=== PATIENT | female | born 1995 | race American Indian/Alaskan Native ===

== ENCOUNTER 2018-09-07 15:19 | Outpatient (CLI) | payer OTHER, MEDICAID ==
[2018-09-07] MEDS ORDERED: LACTATED RINGERS 500 ML IV ONE (15:38)
[2018-09-07 15:54] VITALS: BP 118/68
[2018-09-07 16:05] LABS: Bacteria,Urine 2+ /HPF (Negative); Bilirubin,Urine NEG (Negative); Blood,Urine NEG (Negative); Color,Urine Straw (Yellow); Protein,Urine <15 mg/dL mg/dL (Negative); Urobilinogen,Urine < 2.0 mg/dL (<2.0)
[2018-09-07] MEDS ORDERED: LACTATED RINGERS 1,000 ML ONE (18:48)
[2018-09-07] MEDS ORDERED: ceFAZolin 2 GM in NACL 0.9% 100 ML IV ONE (19:00)
== END 2018-09-07 20:04 | disposition home or self-care (01) ==
LOC: TRG 15:19
PROVIDERS: ATTEND Obstetrics & Gynecology
DX: O47.03 False labor before 37 completed weeks of gestation, third trimester (principal); O99.513 Diseases of the respiratory system complicating pregnancy, third trimester; J45.909 Unspecified asthma, uncomplicated; Z3A.35 35 weeks gestation of pregnancy
CPT/HCPCS: 81001; 96365; J0690; J7120

== ENCOUNTER 2018-10-04 14:44 | Outpatient (CLI) | payer OTHER, MEDICAID ==
[2018-10-04 15:32] VITALS: BP 127/72
== END 2018-10-04 16:15 | disposition home or self-care (01) ==
LOC: TRG 14:44
PROVIDERS: ATTEND Obstetrics & Gynecology
DX: O47.1 False labor at or after 37 completed weeks of gestation (principal); O99.513 Diseases of the respiratory system complicating pregnancy, third trimester; J45.909 Unspecified asthma, uncomplicated; Z3A.39 39 weeks gestation of pregnancy
CPT/HCPCS: 59025

== ENCOUNTER 2018-10-11 10:35 | Outpatient (CLI) | payer OTHER, MEDICAID ==
[2018-10-11 10:58] VITALS: BP 138/75
--- NOTE | 2018-10-11 13:24 | Ultrasound Report ---
ULTRASOUND OB LIMITED History: BERNARD Technique: Transabdominal ultrasound with Doppler interrogation. Gestation: Single Position: Cephalic Amniotic Fluid: Normal BERNARD = 7.4 cm Heart Rate: 120 BPM
--- NOTE | 2018-10-11 13:24 | Ultrasound Report ---
ULTRASOUND BIOPHYSICAL PROFILE: History: well being, postdates Technique: Transabdominal ultrasound with Doppler interrogation. 2 - breathing movements 2 - movements 2 - posture and tone 2 - Qualitative amniotic fluid volume 8 - TOTAL SCORE OF POSSIBLE 8 Heart Rate (bpm) 123
== END 2018-10-11 13:22 | disposition home or self-care (01) ==
LOC: TRG 10:35
PROVIDERS: ATTEND Obstetrics & Gynecology
DX: O47.1 False labor at or after 37 completed weeks of gestation (principal); O99.513 Diseases of the respiratory system complicating pregnancy, third trimester; J45.909 Unspecified asthma, uncomplicated; Z3A.40 40 weeks gestation of pregnancy
CPT/HCPCS: 59025; 76815; 76819

== ENCOUNTER 2018-10-12 00:03 | Outpatient (CLI) | payer OTHER, MEDICAID ==
[2018-10-12 00:26] VITALS: BP 126/85
[2018-10-12] MEDS ORDERED: VISTARIL PO PRN (01:18)
== END 2018-10-12 01:34 | disposition home or self-care (01) ==
LOC: TRG 00:03
PROVIDERS: ATTEND Obstetrics & Gynecology
DX: O47.1 False labor at or after 37 completed weeks of gestation (principal); Z3A.40 40 weeks gestation of pregnancy
CPT/HCPCS: Q0177

== ENCOUNTER 2018-10-12 09:15 | Inpatient (IN) | payer OTHER, MEDICAID ==
[2018-10-12] MEDS ORDERED: LACTATED RINGERS 1,000 ML ONE ×2 (11:27→12:44)
[2018-10-12] MEDS ORDERED: ZOFRAN IV PRN (12:14)
[2018-10-12] MEDS ORDERED: MINERAL OIL PO PRN (12:14)
[2018-10-12] MEDS ORDERED: BRETHINE SUB-Q PRN (12:14)
[2018-10-12] MEDS ORDERED: SUBLIMAZE IV PRN (12:14)
[2018-10-12] MEDS ORDERED: NARCAN 0.4 MG/1 ML IV PRN (12:14)
[2018-10-12] MEDS ORDERED: STADOL IV PRN (12:14)
[2018-10-12] MEDS ORDERED: BRETHINE IVP PRN (12:14)
[2018-10-12 12:31] LABS: Hematocrit 28.4 % (30.3-42.9); Hemoglobin 8.8 gm/dl (10.1-14.3); Mean Corpuscular HGB Conc 31 % (30-34); Mean Corpuscular Volume 76 fl (79-97); Platelet Count 356 K/mm3 (140-440); Red Blood Count 3.74 M/mm3 (3.65-5.03); Red Cell Distribution Width 19.2 % (13.2-15.2)
[2018-10-12] MEDS ORDERED: PITOCin/NS 20 UNIT/1000ML DRIP 20 UNITS/1,000 ML BAG IV SCH (13:00)
[2018-10-12] MEDS ORDERED: LACTATED RINGERS 1,000 ML IV SCH (13:00)
[2018-10-12] MEDS ORDERED: PITOCin/NS 30 UNIT/500ML 30 UNITS/500 ML BAG IV SCH ×2 (13:00)
[2018-10-12] MEDS ORDERED: XYLOCAINE 2% INFILTRATI ONE ×3 (13:14→23:46)
[2018-10-12] MEDS ORDERED: CERVIDIL VG ONE (13:14)
[2018-10-12] MEDS ORDERED: AMPICILLIN/NS 2 GM/100 ML 2 GM/100 ML BAG IV ONE (13:14)
[2018-10-12] MEDS ORDERED: NARCAN 2 MG/2 ML IV PRN (15:01)
--- NOTE | 2018-10-12 15:01 | Anesthesia Consultation ---
Anesthesia Consult and Med Hx Date of service: 10/12/18 - Airway Anesthetic Teeth Evaluation: Good ROM Head & Neck: Adequate Mental/Hyoid Distance: Adequate Mallampati Class: Class III Intubation Access Assessment: Possibly Difficult - Pre-Operative Health Status ASA Pre-Surgery Classification: ASA3 Proposed Anesthetic Plan: Epidural, Spinal - Pulmonary Hx Asthma: Yes (Last attack @ age 10) COPD: No Hx Pneumonia: No - Cardiovascular System Hx Hypertension: No - Central Nervous System Hx Seizures: No Hx Psychiatric Problems: No - Endocrine Hx Renal Disease: No Hx End Stage Renal Disease: No Hx Hypothyroidism: No Hx Hyperthyroidism: No - Hematic Hx Anemia: No Hx Sickle Cell Disease: No - Other Systems Hx Alcohol Use: No Hx Obesity: Yes (BMI 48.4)
[2018-10-12] MEDS ORDERED: fentaNYL-BUPIV 2 MCG/ML-0.125% 200 MCG/100 ML BAG EPIDURAL SCH (16:00)
[2018-10-12] MEDS ORDERED: AMPICILLIN/NS 1 GM/50 ML 1 GM/50 ML BAG IV SCH (16:16)
--- NOTE | 2018-10-12 20:44 | History and Physical Report ---
History of Present Illness Date of examination: 10/12/18 Date of admission: 10/12/18 12:31 Chief complaint: contractions History of present illness: Pt is a 23 year old -[place] female primigravida MAXIMILIANO 10/08/18 at 40w4d who presents with contractions worsening in intensity and increasing frequency for the past 5 days. She had a variable decel down to the 90s while in triage so she was admitted for non-reassuring status. She reports no vaginal bleed ing or leakage of fluid. She has had care at [facility] since 12 wks complicated by morbid obesity, trichomonas treated with a negative test of cure, and GBS positive status. Past History Past Medical History: asthma, other (Morbid Obesity ) Past Surgical History: tonsillectomy Family/Genetic History: none Social history: no significant social history - Obstetrical History Expected Date of Delivery: 10/08/18 Actual Gestation: 40 Week(s) 4 Day(s) : 1 Medications and Allergies Allergies Allergy/AdvReac Type Severity Reaction Status Date / Time No Known Allergies Allergy Verified 10/12/18 08:53 Home Medications Medication Instructions Recorded Confirmed Last Taken Type No Known Home Medications [No 10/04/18 10/04/18 Unknown History Reported Home Medications] Active Meds: Active Medications Butorphanol Tartrate (Stadol) 2 mg IV Q2H PRN PRN Reason: Pain , Severe (7-10) Ephedrine Sulfate (Ephedrine Sulfate) 10 mg IV Q2M PRN PRN Reason: Hypotension Fentanyl (Sublimaze) 100 mcg IV Q2H PRN PRN Reason: Labor Pain Last Admin: 10/12/18 15:07 Dose: 100 mcg Documented by: Oxytocin/Sodium Chloride (Pitocin/Ns 20 Unit/1000ml Drip) 20 units in 1,000 mls @ 125 mls/hr IV DIRECT JAZ Oxytocin/Sodium Chloride (Pitocin/Ns 30 Unit/500ml) 30 units in 500 mls @ 1 mls/hr IV TITR JAZ; Protocol Last Titration: 10/12/18 20:16 Dose: 7 milliunits/min, 7 mls/hr Documented by: Oxytocin/Sodium Chloride (Pitocin/Ns 30 Unit/500ml) 30 units in 500 mls @ 4 mls/hr IV TITR JAZ; Protocol Lactated Ringer's (Lactated Ringers) 1,000 mls @ 125 mls/hr IV DIRECT JAZ Ampicillin Sodium (Ampicillin/Ns 1 Gm/50 Ml) 1 gm in 50 mls @ 100 mls/hr IV Q4H JAZ; Protocol Last Admin: 10/12/18 16:39 Dose: 100 mls/hr Documented by: Fentanyl/Bupivacaine/Sodium Chlor (Fentanyl-Bupiv 2 Mcg/Ml-0.125%) 200 mcg in 100 mls @ 12 mls/hr EPIDURAL TITR JAZ; Protocol Last Admin: 10/12/18 18:03 Dose: 12 mls/hr Documented by: Mineral Oil (Mineral Oil) 30 ml PO QHS PRN PRN Reason: Constipation Naloxone HCl (Narcan 2 Mg/2 Ml) 0.2 mg IV Q5M PRN PRN Reason: Respiratory sedation Ondansetron HCl (Zofran) 4 mg IV Q8H PRN PRN Reason: Nausea And Vomiting Terbutaline Sulfate (Brethine) 0.25 mg SUB-Q ONCE PRN PRN Reason: Hyperstimulation/Hypertonicity Terbutaline Sulfate (Brethine) 0.25 mg IVP ONCE PRN PRN Reason: Hyperstimulation/Hypertonicity Review of Systems All systems: negative - Vital Signs Vital signs: Vital Signs Temp 97.7 F 10/12/18 12:07 Temp Pulse Resp BP Pulse Ox 98.3 F 113 H 137/76 100 10/12/18 19:13 10/12/18 20:32 10/12/18 20:19 10/12/18 20:32 - Physical Exam Breasts: Positive: deferred Cardiovascular: Regular rate Lungs: Positive: Clear to auscultation Abdomen: Positive: soft (obese, gravid ) Uterus: Positive: enlarged (gravid) Extremities: Positive: edema (trace) - Obstetrical FHR: auscultation normal Cervical Dilatation: 10 Cervical Effacement Percentage: 100 station: 0 Uterine Contraction Pattern: Regular Uterine Tone Measurement Phase: Resting Uterine Contraction Intensity: Strong/Firm Results Result Diagrams: 10/12/18 11:31 Abnormal lab results 10/12/18 Range/Units 11:31 WBC 19.0 H (4.5-11.0) K/mm3 Hgb 8.8 L (10.1-14.3) gm/dl Hct 28.4 L (30.3-42.9) % MCV 76 L (79-97) fl MCH 24 L (28-32) pg RDW 19.2 H (13.2-15.2) % All other labs normal. Assessment and Plan A: IUP at 40w4d Non-reassuring status Second Stage labor Morbid Obesity Asthma Trichomonas treated with a negative test of cure GBS positive P: Admit to labor and delivery AROM- clear fluid Routine intrapartum care Closely monitor maternal and status
[2018-10-12] MEDS ORDERED: METHERGINE IM ONE ×2 (22:37→23:46)
[2018-10-12] MEDS ORDERED: CYTOTEC ONE (22:59)
--- NOTE | 2018-10-12 23:38 | Procedure Note ---
OB Delivery Note - Delivery Date of Delivery: 10/12/18 Surgeon: MEGHANA ROBBINS Estimated blood loss: other (800 mL) - Vaginal Delivery presentation: vertex Delivery position: OA Intrapartum events: febrile- temp >100.3, PROM->1hr before delivery, prolonged latent phase, mult.variable deceleratio, hemorrhage, uterine atony Delivery induction: none Delivery augmentation: rupture of membranes, pitocin Delivery monitor: external FHT, external uterine Route of delivery: Delivery placenta: spontaneous Delivery cord: 3 umbilical vessels Episiotomy: none Delivery laceration: 2nd degree, vaginal side wall Delivery repair: vicryl Anesthesia: local, intravenous Delivery comments: Pt progressed to complete/complete/+1 and pushed to deliver a viable female over intact perineum via under epidural anesthesia. Head delivered in LALA position followed quickly by shoulders and body. Body cord x 1. placed on maternal abdomen and bulb suctioned. Cord clamped and cut and handed to nurse in attendance. Placenta delivered spontaneously (3VC, intact). Uterine atony noted despite pitocin infusion. Methergine 0.2 mg IM given. Second degree perineal laceration and first degree vaginal laceration repaired with 2-0 Vicryl in a standard fashion. Midline periurethral laceration repaired with 3-0 Vicryl in a standard fashion. Kenny catheter placed. Vaginal packing placed. Misoprostol 800 mcg placed per rectum. CBC ordered. - A at 1 minute: 7 (2888g (6lb 6oz) @ 2224 pm) at 5 minutes: 9 Gender: Female (2888g (6lb 6)
[2018-10-12] MEDS ORDERED: CYTOTEC PR ONE (23:46)
[2018-10-12] MEDS ORDERED: NACL 0.9% 500 ML 500 ML IV ONE (23:50)
[2018-10-12 23:53] LABS: Hematocrit 28.7 % (30.3-42.9); Hemoglobin 8.9 gm/dl (10.1-14.3); Mean Corpuscular HGB Conc 31 % (30-34); Mean Corpuscular Volume 77 fl (79-97); Platelet Count 332 K/mm3 (140-440); Red Blood Count 3.74 M/mm3 (3.65-5.03)
[2018-10-13] MEDS ORDERED: MILK OF MAGNESIA PO PRN (00:58)
[2018-10-13] MEDS ORDERED: SODIUM CHLORIDE FLUSH SYRINGE 10 ML IV NR (00:58)
[2018-10-13] MEDS ORDERED: PITOCin/NS 20 UNIT/1000ML DRIP 20 UNITS/1,000 ML BAG IV SCH (00:58)
[2018-10-13] MEDS ORDERED: ZOFRAN IV PRN (00:58)
[2018-10-13] MEDS ORDERED: BENADRYL PO PRN (00:58)
[2018-10-13] MEDS ORDERED: PHENERGAN PR PRN (00:58)
[2018-10-13] MEDS ORDERED: PHENERGAN PO PRN (00:58)
[2018-10-13] MEDS ORDERED: TYLENOL PO PRN (00:58)
[2018-10-13] MEDS ORDERED: DULCOLAX PR PRN (00:58)
[2018-10-13] MEDS: DERMOPLAST TP PRN (01:36)
[2018-10-13] MEDS: LANSINOH TP PRN (01:36)
[2018-10-13] MEDS: NORCO 5/325 PO PRN ×2 (01:37→22:15)
[2018-10-13] MEDS: TUCKS PAD TP PRN (01:37)
[2018-10-13] MEDS: AMPICILLIN/NS 2 GM/100 ML 2 GM/100 ML BAG IV SCH ×4 (02:16→21:08)
[2018-10-13] MEDS: IBUPROFEN PO SCH ×4 (06:56→23:20)
--- NOTE | 2018-10-13 08:33 | Progress Note ---
Assessment and Plan A: 1. PPD1 s/p , PPH, lacerations, and fever 2. Endometritis P: Vaginal packing and potts catheter removed Continue Ampicillin, initiate Gentamicin and Clindamycin. - Patient Problems (1) Endometritis following delivery Current Visit: Yes Status: Acute Subjective - Subjective Date of service: 10/13/18 Principal diagnosis: day 1 Interval history: Pt is day 1 s/p of viable female infant. She sustained a 2nd degree perineal laceration, 1st degree vaginal laceration, and midline periurethral laceration. PPH, vaginal packing and potts catheter were placed. She was febrile overnight and given Ampicillin. She is feeling warm, pain is well-controlled with Motrin. Patient reports: appetite normal, pain well controlled [place]: doing well, bottle feeding Objective - Vital Signs Latest vital signs: Vital Signs Temp Pulse Resp BP BP Pulse Ox 10/13/18 07:41 98.0 F 104 H 18 118/61 10/13/18 05:11 98.6 F 117 H 18 101/67 92 10/13/18 00:54 101.9 F H 104 H 18 129/79 100 10/13/18 00:23 113 H 144/91 10/13/18 00:22 125 H 100 10/13/18 00:17 114 H 100 10/13/18 00:12 108 H 100 10/13/18 00:08 106 H 140/90 10/13/18 00:07 105 H 100 10/13/18 00:02 104 H 100 10/13/18 00:00 99.6 F 10/12/18 23:57 108 H 100 10/12/18 23:53 101 H 144/94 10/12/18 23:52 99 H 100 10/12/18 23:47 114 H 100 10/12/18 23:42 104 H 100 10/12/18 23:37 102 H 97 10/12/18 23:30 123 H 91 10/12/18 23:19 131 H 141/90 10/12/18 23:02 95 H 97 10/12/18 22:57 97 H 98 10/12/18 22:54 98 H 141/80 10/12/18 22:52 99 H 99 10/12/18 22:48 102 H 138/84 10/12/18 22:47 98 H 99 06/18/19 22:43 111 H 136/83 06/18/19 22:42 110 H 100 06/18/19 22:30 100.1 F H 0618/19 22:12 137 H 97 06/18/19 21:45 132 H 96 06/18/19 21:40 138 H 98 06/18/19 21:10 125 H 98 06/18/19 21:04 99 H 99 06/18/19 20:32 113 H 100 06/18/19 20:27 111 H 100 06/18/19 20:22 113 H 100 06/18/19 20:19 100 H 137/76 06/18/19 20:17 110 H 100 06/18/19 20:12 94 H 100 06/18/19 20:07 105 H 100 06/18/19 20:02 100 H 100 06/18/19 19:57 120 H 99 06/18/19 19:52 99 H 100 06/18/19 19:47 99 H 100 06/18/19 19:42 107 H 99 18/19 19:37 118 H 98 06/18/19 19:32 114 H 99 06/18/19 19:23 100 H 142/62 0618/19 19:20 105 H 99 06/18/19 19:15 94 H 99 06/18/19 19:13 98.3 F 0618/19 19:10 98 H 100 06/18/19 19:05 80 100 06/18/19 19:00 98.3 F 80 100 06/18/19 18:55 83 100 06/18/19 18:50 86 100 06/18/19 18:45 79 100 06/18/19 18:40 93 H 100 06/18/19 18:35 79 100 06/18/19 18:32 90 122/60 06/18/19 18:30 80 100 06/18/19 18:25 93 H 100 06/18/19 18:20 92 H 100 06/18/19 18:18 102 H 126/58 06/18/19 18:15 87 100 06/18/19 18:10 97 H 100 06/18/19 18:05 87 124/75 100 06/18/19 18:00 92 H 100 06/18/19 17:55 76 100 06/18/19 17:50 77 100 06/18/19 17:48 81 133/62 0618/19 17:45 90 99 0618/19 17:40 81 100 0618/19 17:35 77 100 0618/19 17:33 75 117/65 0618/19 17:30 86 100 0618/19 17:25 89 99 0618/19 17:20 82 100 0618/19 17:18 90 127/81 1819 17:15 94 H 98 18 17:10 94 H 100 1819 17:08 99 H 84 18 17:05 91 H 100 1819 17:00 88 99 1819 16:55 82 100 1819 16:50 84 100 1819 16:48 96 H 137/65 18/19 16:45 90 100 1819 16:40 79 99 1819 16:35 86 99 19 16:32 88 142/69 10/12/18 16:30 112 H 100 19 16:27 99 H 149/77 10/12/18 16:25 96 H 99 18/19 16:20 104 H 99 19 16:17 96 H 140/74 19 16:15 98 H 98 19 16:14 107 H 76 L 10/12/18 16:09 104 H 98 1819 16:04 89 98 1819 15:59 91 H 99 19 15:54 84 98 1819 15:49 79 89 1819 15:17 80 106/66 94 18/19 15:16 79 98 0618/19 14:53 121 H 98 18/19 14:48 114 H 97 18/19 14:46 87 92 18/19 14:43 112 H 98 1819 14:38 88 99 18/19 14:33 80 100 1819 14:28 98 H 99 18/19 14:23 88 98 18/19 14:18 90 98 1819 14:13 111 H 98 1819 14:08 99 H 99 10/12/18 14:06 112 H 94 10/12/18 14:03 81 98 10/12/18 13:58 85 99 10/12/18 13:53 91 H 100 10/12/18 13:48 89 98 10/12/18 13:43 102 H 98 10/12/18 13:32 80 98 10/12/18 13:27 91 H 100 10/12/18 13:22 90 100 10/12/18 13:17 88 100 10/12/18 13:12 86 100 10/12/18 13:07 101 H 99 10/12/18 13:02 85 99 10/12/18 12:28 95 H 138/71 10/12/18 12:07 97.7 F Intake and Output 10/12/18 10/13/18 10/13/18 23:59 07:59 15:59 Intake Total 34.9 1480 Output Total 500 1800 1000 Balance -465.1 -320 -1000 Intake: IV 34.9 100 AMPICILLIN/NS 2 GM/100 ML 100 2 gm In 100 ml @ 100 mls /hr IV Q6H JAZ Rx#: [id number] PITOCin/NS 30 UNIT/500ML 34.9 30 units In 500 ml @ 1 MILLIUNITS/MIN 1 mls/hr IV TITR JAZ Rx#:[id number] Oral 1180 Intake, Free Water 200 Output: Urine 500 1800 1000 Indwelling Catheter 500 1800 1000 Other: Total, Intake Amount 480 Total, Output Amount 500 1100 1000 Estimated Blood Loss 800 - Exam Breasts: Present: deferred Cardiovascular: Present: Regular rate, Normal S1, Normal S2, No murmurs Lungs: Present: Clear to auscultation, Normal air movement Abdomen: Present: normal appearance, soft Uterus: Present: normal, firm, tenderness, fundal height below umbilicus Extremities: Present: normal - Labs Labs: Abnormal lab results 10/12/18 10/12/18 10/12/18 Range/Units 11:31 11:31 23:39 WBC 19.0 H 23.3 H (4.5-11.0) K/mm3 Hgb 8.8 L 8.9 L (10.1-14.3) gm/dl Hct 28.4 L 28.7 L (30.3-42.9) % MCV 76 L 77 L (79-97) fl MCH 24 L 24 L (28-32) pg RDW 19.2 H 19.0 H (13.2-15.2) % Crossmatch See Detail
[2018-10-13] MEDS ORDERED: GENTAMICIN IV SCH (08:45)
[2018-10-13] MEDS: FEOSOL PO SCH ×2 (10:32→21:07)
[2018-10-13] MEDS: CLEOCIN 900 MG/50 mL 900 MG/50 ML BAG IV SCH ×2 (10:32→18:33)
[2018-10-13] MEDS: GENTAMICIN 200 MG in NACL 0.9% 100 ML IV SCH ×2 (13:26→23:21)
[2018-10-13 14:43] LABS: Hemoglobin 6.7 gm/dl (10.1-14.3)
[2018-10-14] MEDS: CLEOCIN 900 MG/50 mL 900 MG/50 ML BAG IV SCH ×4 (02:28→23:10)
[2018-10-14] MEDS: AMPICILLIN/NS 2 GM/100 ML 2 GM/100 ML BAG IV SCH ×4 (03:21→23:55)
[2018-10-14] MEDS ORDERED: M-M-R II VACCINE SUB-Q ONE (06:00)
[2018-10-14] MEDS ORDERED: BOOSTRIX IM ONE (06:00)
[2018-10-14] MEDS: IBUPROFEN PO SCH ×5 (06:23→23:22)
[2018-10-14] MEDS: FEOSOL PO SCH ×2 (10:17→21:45)
[2018-10-14] MEDS ORDERED: LACTATED RINGERS 1,000 ML ONE (10:26)
[2018-10-14] MEDS: GENTAMICIN 200 MG in NACL 0.9% 100 ML IV SCH ×2 (12:05→21:43)
--- NOTE | 2018-10-14 13:02 | Progress Note ---
Assessment and Plan A: PPD2 s/p , PPH, 2nd degree lac Endometritis Severe anemia P: Continue IV antibiotics for a total of 48 hours, may then consider discharge if VSS Continue oral ferrous sulfate per patient preference - Patient Problems (1) Endometritis following delivery Current Visit: Yes Status: Acute Subjective - Subjective Date of service: 10/14/18 Principal diagnosis: Interval history: Pt is day 2 s/p of viable female . She sustained a 2nd degree perineal laceration, 1st degree vaginal laceration, and midline periu rethral laceration. PPH, vaginal packing and potts catheter were removed on PPD1. She was febrile, diagnosed with endometritis. She received Ampicillin, Gentamycin, and Clindamycin on PPD1. She is now afebrile and doing well. Her hgb decreased from 8.8 predelivery to 6.7 . She is taking oral ferrous suflate and declined a blood transfusion. She is asymptomatic for anemia. Patient reports: appetite normal, voiding normally, pain well controlled, ambulating normally : doing well, bottle feeding Objective - Vital Signs Latest vital signs: Vital Signs Temp Pulse Resp BP BP Pulse Ox 10/14/18 10:16 20 10/14/18 08:43 97.6 F 97 H 18 115/66 98 10/14/18 01:17 97.3 F L 94 H 20 103/56 98 10/13/18 16:13 97.9 F 83 18 107/62 Intake and Output 10/13/18 10/14/18 10/14/18 23:59 07:59 15:59 Intake Total 630 100 360 Output Total 1600 Balance -970 100 360 Intake: IV 150 100 AMPICILLIN/NS 2 GM/100 ML 100 100 2 gm In 100 ml @ 100 mls /hr IV Q6H JAZ Rx#: [id number] CLEOCIN 900 MG/50 mL 900 50 mg In 50 ml @ 100 mls/hr IV Q8H JAZ Rx#:[id number] Oral 480 360 Output: Urine 1600 Void 1600 Other: Total, Intake Amount 480 360 Total, Output Amount 1600 # Voids Void 2 - Exam Breasts: Present: deferred Cardiovascular: Present: Regular rate, Normal S1, Normal S2, No murmurs Lungs: Present: Clear to auscultation, Normal air movement Abdomen: Present: normal appearance, soft Uterus: Present: normal, firm, fundal height below umbilicus Extremities: Present: normal - Labs Labs: Abnormal lab results 10/12/18 10/13/18 Range/Units 11:31 13:54 Hgb 6.7 L (10.1-14.3) gm/dl Hct 22.0 L D (30.3-42.9) % Crossmatch See Detail
[2018-10-14] MEDS ORDERED: LACTATED RINGERS 1,000 ML IV SCH (17:00)
[2018-10-15] MEDS: GENTAMICIN 200 MG in NACL 0.9% 100 ML IV SCH ×4 (04:34→13:03)
[2018-10-15] MEDS: CLEOCIN 900 MG/50 mL 900 MG/50 ML BAG IV SCH ×2 (05:15→13:12)
--- NOTE | 2018-10-15 08:37 | Progress Note ---
Assessment and Plan A: PPD3 s/p , PPH, 2nd degree lac Endometritis Severe anemia P: Continue IV antibiotics for a total of 48 hours, may then consider discharge if VSS Continue oral ferrous sulfate per patient preference may be d/c home with f/u in 1 weeks for check Subjective - Subjective Date of service: 10/15/18 Principal diagnosis: Patient reports: appetite normal, voiding normally, pain well controlled, flatus, ambulating normally [place]: doing well Objective - Vital Signs Latest vital signs: Vital Signs Temp Pulse Resp BP Pulse Ox 10/15/18 00:30 98.6 F 81 18 117/78 10/15/18 00:00 98.6 F 81 18 102/69 10/14/18 17:49 20 10/14/18 15:38 97.4 F L 100 H 16 113/72 100 10/14/18 10:16 20 10/14/18 08:43 97.6 F 97 H 18 115/66 98 Intake and Output 10/14/18 10/15/18 10/15/18 23:59 07:59 15:59 Intake Total 575 300 Balance 575 300 Intake: IV 255 AMPICILLIN/NS 2 GM/100 ML 100 2 gm In 100 ml @ 100 mls /hr IV Q6H JAZ Rx#: [id number] CLEOCIN 900 MG/50 mL 900 50 mg In 50 ml @ 100 mls/hr IV Q8H JAZ Rx#:[id number] Gentamicin 200 mg In NaCl 105 0.9% 100 ml @ 200 mls/hr IV Q8H [facility] Rx#:[id number] Oral 320 Intake, Free Water 300 Other: Total, Intake Amount 200 # Voids Indwelling Catheter 1 Void 1 - Exam Breasts: Present: normal Cardiovascular: Present: Regular rate, Normal S1 Lungs: Present: Clear to auscultation, Normal air movement Abdomen: Present: normal appearance, soft, normal bowel sounds. Absent: distention, tenderness, guarding Vulva: both: normal Uterus: Present: normal, firm, fundal height below umbilicus. Absent: b ogginess, tenderness Extremities: Present: normal Deep Tendon Reflex Grade: Normal +2
--- NOTE | 2018-10-15 08:42 | Discharge Summary ---
Providers - Providers Date of Admission: 10/12/18 12:31 Date of discharge: 10/15/18 Attending physician: MEGHANA ROBBINS Primary care physician: MEGHANA ROBBINS Hospitalization Reason for admission: active labor Delivery: Episiotomy: none Laceration: 2nd degree Incision: normal, dry, intact Other procedures: none complications: other (endomyometritis) Discharge diagnosis: IUP at term delivered [place] baby: female Hospital course: Patient had a with pospartum hemorrhage of 800. Patient was anemic and had packing placed. Removed packing. temp spike to 101 amp gent clinda given for presumed endometritis. d/c home afebrile >48 hrs. f/u in 1 weeks for check. Condition at discharge: Good Disposition: DC-01 TO HOME OR SELFCARE Plan - Provider Discharge Summary Additional instructions: [] Smoking cessation referral if applicable(refer to patient education folder for contact #) [] Refer to [facility] Booklet Call your doctor immediately for: * Fever > 100.5 * Heavy vaginal bleeding ( >1 pad per hour) * Severe persistent headache * Shortness of breath * Reddened, hot, painful area to leg or breast * Drainage or odor from incision. * Keep incision clean and dry at all times and follow doctor's instructions regarding bathing/showering - Follow up plan Follow up: MEGHANA ROBBINS MD [Primary Care Provider] - 7 Days
[2018-10-15] MEDS: LANSINOH TP PRN (12:00)
[2018-10-15] MEDS: FEOSOL PO SCH (12:00)
[2018-10-15 17:46] VITALS: BP 111/72
[2018-10-15] MEDS: DERMOPLAST TP PRN (18:41)
[2018-10-15] MEDS: TUCKS PAD TP PRN (18:42)
== END 2018-10-15 19:20 | disposition home or self-care (01) | DRG 806 ==
LOC: TRG 09:15 → LD 12:31 → OB 10-13 00:56
PROVIDERS: ADMIT Obstetrics & Gynecology; ATTEND Obstetrics & Gynecology
PROC: 10E0XZZ Delivery of Products of Conception, External Approach (ICD-10-PCS; principal; 2018-10-12)
PROC: 0KQM0ZZ Repair Perineum Muscle, Open Approach (ICD-10-PCS; 2018-10-12)
PROC: 10907ZC Drainage of Amniotic Fluid, Therapeutic from Products of Conception, Via Natural or Artificial Opening (ICD-10-PCS; 2018-10-12)
PROC: 0UQMXZZ Repair Vulva, External Approach (ICD-10-PCS; 2018-10-12)
DX: O76 Abnormality in fetal heart rate and rhythm complicating labor and delivery (principal); O75.2 Pyrexia during labor, not elsewhere classified; Z37.0 Single live birth; O86.12 Endometritis following delivery; O72.1 Other immediate postpartum hemorrhage; O99.52 Diseases of the respiratory system complicating childbirth; O99.214 Obesity complicating childbirth; O99.824 Streptococcus B carrier state complicating childbirth; O42.02 Full-term premature rupture of membranes, onset of labor within 24 hours of rupture; O63.1 Prolonged second stage (of labor); O70.1 Second degree perineal laceration during delivery; O90.81 Anemia of the puerperium; D64.9 Anemia, unspecified; J45.909 Unspecified asthma, uncomplicated; E66.01 Morbid (severe) obesity due to excess calories; Z3A.40 40 weeks gestation of pregnancy
CPT/HCPCS: 36415; 85014; 85018; 85027; 86592; 86850; 86900; 86901; 86920; G0378; A6250; J0290; J0595; J1580; J2210; J2590; J3010; J7120; Q0177